=== PATIENT | male | born 1975 | race Caucasian/White ===

== ENCOUNTER 2018-07-06 14:26 | Emergency (ER) | payer OTHER ==
[2018-07-06] MEDS ORDERED: NS 1,000 ML IV ONE (15:22)
--- NOTE | 2018-07-06 15:22 | EDPHY ---
H & P Stated Complaint: mid sternal cp L arm tingling x 2 wks worse today Source: Patient Exam Limitations: No limitations - Medical/Surgical History Hx Asthma: No Hx Chronic Respiratory Disease: No Hx Diabetes: No Hx Cardiac Disease: No Hx Renal Disease: No Hx Cirrhosis: No Hx Alcoholism: No Hx HIV/AIDS: No Hx Splenectomy or Spleen Trauma: No Other PMH: denies - Social History Smoking Status: Former smoker Time Seen by Provider: 07/06/18 15:21 HPI/ROS: HPI: This is a 43-year-old male who presents with Chief Complaint: Left anterior chest, left posterior lateral neck, left arm pain Location: Left anterior chest, left posterior lateral neck, left arm pain Quality: Pressure, ache pain Duration: 1 month Signs and Symptoms: no shortness of breath at rest, no shortness of breath on exertion, no cough, + chest pain, no palpitations, no lower extremity edema, no wheezing, no orthopnea, no paroxysmal nocturnal dyspnea, no fever, no injury/ trauma, no hemoptysis, no carpal pedal spasms Timing: Worse this morning Severity: [id number] Context: Patient presents with left anterior chest discomfort that occurs 1-2 times per week lasting for a few seconds and resolving on its own x1 month. He reports that this chest discomfort is accompanied by left posterior and lateral neck discomfort that radiates into his left arm and down into his left middle ring and pinky fingers. Patient reports that he woke up this morning with numbness and tingling in his left arm. He then started to developed chest discomfort and cardiac awareness. He also complains that the discomfort radiates from his left arm and posterior neck into his left mid back. Nothing makes the pain better or worse. No association with exertion, no edema. Denies any nausea, vomiting, shortness of breath, cough, lower extremity edema. No recent long distance travel. Patient does not have a primary care provider and does not regularly receive medical care. No family cardiac history. Former smoker. 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 Denies any indigestion, reflux symptoms, intolerance to fatty or fried foods, abdominal pain, early satiety. Does not regularly use alcohol. Modifying Factors: None Comment: ROS: A comprehensive 10 system review of systems is otherwise negative aside from elements mentioned in the history of present illness. MEDICAL/SURGICAL/SOCIAL HISTORY: Medical history: Generally healthy. Does not take any regular medications. Surgical history: Denies Social history: Former smoker. Denies regular alcohol use. 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 CONSTITUTIONAL: Anxious but polite and cooperative middle-aged white male, physically fit, awake and alert, no obvious distress HEENT: Atraumatic and normocephalic, PERRL, EOMI. Nares patent; no rhinorrhea; no nasal mucosal edema. Tympanic membranes clear. Oropharynx clear, no exudate and moist pink mucosa. Airway patent. No lymphadenopathy. NECK: supple, no midline tenderness, flexion 45 degrees, extension 45 degrees, right and left lateral flexion 45 degrees. Patient does have reproduction of the pain on his left lateral neck and into his left arm when he touches his right ear to his right shoulder. No JVD. Cardiovascular: Normal S1/S2, regular rate, regular rhythm, without murmur rub or gallop. PULMONARY/CHEST: Symmetrical and nontender. Clear to auscultation bilaterally. Good air movement. No accessory muscle usage. ABDOMEN: Soft, nondistended, nontender, no rebound, no guarding, no peritoneal signs, no masses or organomegaly. No CVAT. EXTREMITIES: 2/2 pulses, strength 5/5, no deformities, no clubbing, no cyanosis or edema. NEUROLOGICAL: no focal neuro deficits. GCS 15. SKIN: Warm and dry, no erythema. no rash. Good capillary refill. (Kiki Augustin) Constitutional: Initial Vital Signs Temperature (C) 37.0 C 07/06/18 14:29 Heart Rate 97 07/06/18 14:29 Respiratory Rate 16 07/06/18 14:29 Blood Pressure 148/91 H 07/06/18 14:29 O2 Sat (%) 100 07/06/18 14:29 O2 Delivery Mode Room Air Allergies/Adverse Reactions: No Known Allergies Allergy (Verified 02/25/13 13:21) Home Medications: Medication Instructions Recorded Cyclobenzaprine [Flexeril 10 MG 10 mg PO TID PRN #15 tab 07/06/18 (*)] Medical Decision Making - Diagnostics Imaging Results: Imaging Impressions Cervical Spine X-Ray 07/06/18 15:30 Impression: 1. Limited evaluation of the C1-C2 level. 2. Otherwise normal two view cervical spine. Chest X-Ray 07/06/18 15:30 Impression: Clear lungs. No explanation for chest pain. ED Course/Re-evaluation: Vital signs reviewed and stable upon arrival. Placed on client project coordinator. Initial EKG my read with attending shows sinus tachycardia with a rate of 110 beats per minute but no acute ischemic changes. IV access, laboratory studies, chest x-ray, EKG, cervical neck x-ray ordered Patient given 1 L normal saline 1540: Notified by tech that troponin 0.01 1551: Labs reviewed. No signs of leukocytosis/anemia/platelet dysfunction/BELIA/ elevated LFTs/electrolyte imbalance/pancreatitis/VTE. 1635:Chest X-ray my read shows no signs of opacity, no effusion, no widened mediastinum, no pneumothorax. Left shoulder does not show any significant degenerative changes. 1638Cervical neck is x-ray my read shows mild degenerative changes at the C7-T1 straightening of the lordosis consistent with spasm. HEART score= low risk I reviewed the share decision making instrument with the patient, including risk of MACE, and the patient (and family) that are in agreement with the chosen disposition. Second troponin not indicated as discomfort has been lasting 1 month. Patient reports that he does have a primary care provider but does not regularly visit. He understands he is to follow up with his PCP and have fasting lipid panel drawn and risk factor modification. This patient was seen under the supervision of my secondary supervising physician. I evaluated care for this patient with attending. (Kiki Augustin) I did not see this patient while he was in the emergency department. However his care was discussed with the PA while the patient was in the department. I agree with treatment plan and management (Tr Stephen) Differential Diagnosis: Chest pain including but not limited to myocardial ischemia, pulmonary embolus, chest wall pain, pleural inflammation and pulmonary infectious causes. (Kiki Augustin) - Data Points Laboratory Results: Laboratory Results 07/06/18 14:45 07/06/18 14:45 07/06/18 07/06/18 07/06/18 14:45 14:45 14:45 WBC RBC Hgb Hct MCV MCH MCHC RDW Plt Count MPV Neut % (Auto) Lymph % (Auto) [place] % (Auto) Eos % (Auto) Baso % (Auto) Nucleat RBC Rel Count Absolute Neuts (auto) Absolute Lymphs (auto) Absolute Monos (auto) Absolute Eos (auto) Absolute Basos (auto) Absolute Nucleated RBC Immature Gran % Immature Gran # D-Dimer < 0.27 ug/mLFEU ug/mLFEU (0.00-0.50) Sodium 141 mEq/L mEq/L (135-145) Potassium 4.1 mEq/L mEq/L (3.5-5.2) Chloride 109 mEq/L mEq/L (97-110) Carbon Dioxide 21 mEq/l L mEq/l (22-31) Anion Gap 11 mEq/L mEq/L (6-14) BUN 15 mg/dL mg/dL (7-23) Creatinine 0.9 mg/dL mg/dL (0.7-1.3) Estimated GFR > 60 Glucose 102 mg/dL H mg/dL (70-100) Calcium 9.6 mg/dL mg/dL (8.5-10.4) Total Bilirubin 0.9 mg/dL mg/dL (0.1-1.4) Conjugated Bilirubin 0.3 mg/dL mg/dL (0.0-0.5) Unconjugated Bilirubin 0.6 mg/dL mg/dL (0.0-1.1) AST 23 IU/L IU/L (17-59) ALT 46 IU/L IU/L (21-72) Alkaline Phosphatase 48 IU/L IU/L (38-126) POC Troponin I Total Protein 7.4 g/dL g/dL (6.3-8.2) Albumin 4.5 g/dL g/dL (3.5-5.0) Lipase 283 IU/L IU/L (23-300) 07/06/18 07/06/18 14:45 14:45 WBC 6.72 10^3/uL 10^3/uL (3.80-9.50) RBC 4.70 10^6/uL 10^6/uL (4.40-6.38) Hgb 15.2 g/dL g/dL (13.7-17.5) Hct 42.8 % % (40.0-51.0) MCV 91.1 fL fL (81.5-99.8) MCH 32.3 pg pg (27.9-34.1) MCHC 35.5 g/dL g/dL (32.4-36.7) RDW 12.4 % % (11.5-15.2) Plt Count 334 10^3/uL 10^3/uL (150-400) MPV 9.3 fL fL (8.7-11.7) Neut % (Auto) 57.5 % % (39.3-74.2) Lymph % (Auto) 30.2 % % (15.0-45.0) [facility] [facility] % (Auto) 10.0 % % (4.5-13.0) Eos % (Auto) 1.0 % % (0.6-7.6) Baso % (Auto) 1.2 % % (0.3-1.7) Nucleat RBC Rel Count 0.0 % % (0.0-0.2) Absolute Neuts (auto) 3.86 10^3/uL 10^3/uL (1.70-6.50) Absolute Lymphs (auto) 2.03 10^3/uL 10^3/uL (1.00-3.00) Absolute Monos (auto) 0.67 10^3/uL 10^3/uL (0.30-0.80) Absolute Eos (auto) 0.07 10^3/uL 10^3/uL (0.03-0.40) Absolute Basos (auto) 0.08 10^3/uL 10^3/uL (0.02-0.10) Absolute Nucleated RBC 0.00 10^3/uL 10^3/uL (0-0.01) Immature Gran % 0.1 % % (0.0-1.1) Immature Gran # 0.01 10^3/uL 10^3/uL (0.00-0.10) D-Dimer Sodium Potassium Chloride Carbon Dioxide Anion Gap BUN Creatinine Estimated GFR Glucose Calcium Total Bilirubin Conjugated Bilirubin Unconjugated Bilirubin AST ALT Alkaline Phosphatase POC Troponin I 0.01 ng/mL ng/mL (0.00-0.08) Total Protein Albumin Lipase Medications Given: Discontinued Medications Sodium Chloride (Ns) 1,000 mls @ 0 mls/hr IV EDNOW ONE; Wide Open PRN Reason: Protocol Stop: 07/06/18 15:23 Last Admin: 07/06/18 15:38 Dose: 1,000 mls Point of Care Test Results: Chemistry 07/06/18 14:45 POC Troponin I 0.01 ng/mL ng/mL (0.00-0.08) Departure - Departure Disposition: Home, Routine, Self-Care Clinical Impression: Atypical chest pain, Musculoskeletal pain Left shoulder pain Qualifiers: Chronicity: unspecified Qualified Code(s): M25.512 - Pain in left shoulder Strain of left deltoid muscle Qualifiers: Encounter type: initial encounter Qualified Code(s): S46.812A - Strain of other muscles, fascia and tendons at shoulder and upper arm level, left arm, initial encounter Trapezius muscle strain Qualifiers: Encounter type: initial encounter Laterality: left Qualified Code(s): S46.812A - Strain of other muscles, fascia and tendons at shoulder and upper arm level, left arm, initial encounter Condition: Good Instructions: Chest Pain (ED), Cervical Radiculopathy (ED) Additional Instructions: Take Tylenol 650 mg every 4 hours and/or Ibuprofen 600 mg every 8 hours with food as needed for pain. Use Flexeril every 8 hours as needed for muscle spasm. Apply warm compresses for 30 minutes at a time; 2-3 times per day for the next 1 -2 days. Follow up with PCP in 5-7 days to establish care. You would benefit from fasting lipid panel and risk factor modification. If symptoms continue to persist, recommend cervical MRI outpatient and Cardiology consult to determine candidacy for nuclear stress test. Referrals: Kera Love MD [Medical Doctor] - As per Instructions Prescriptions: Cyclobenzaprine [Flexeril 10 MG (*)] 10 mg PO TID PRN #15 tab PRN Reason: Spasms
[2018-07-06 15:30] LABS: PLATELET COUNT 334 10^3/uL (150-400)
[2018-07-06 16:41] VITALS: BP 131/89
--- NOTE | 2018-07-06 21:51 | CPEKG ---
Test Reason : OPEN Blood Pressure : / mmHG Vent. Rate : 110 BPM Atrial Rate : 109 BPM P-R Int : 171 ms QRS Dur : 077 ms QT Int : 322 ms P-R-T Axes : 054 070 015 degrees QTc Int : 436 ms Sinus tachycardia Confirmed by Tr Stephen ([id number]) on 07/06/2018 9:50:48 PM Referred By: PHYSICIAN ED Confirmed By:Tr Stephen
== END 2018-07-06 16:40 | disposition home or self-care (01) ==
DX: S46.812A Strain of other muscles, fascia and tendons at shoulder and upper arm level, left arm, initial encounter (principal); R07.89 Other chest pain; E86.9 Volume depletion, unspecified; X50.1XXA Overexertion from prolonged static or awkward postures, initial encounter
CPT/HCPCS: 84484-ER